=== PATIENT | male | born 1980 | race Native Hawaiian/Other Pacific Islander ===

== ENCOUNTER 2018-02-13 07:30 | Outpatient (CLI) | payer BC ==
[2018-02-13 08:02] LABS: PLATELET COUNT 245 K/uL (142-355)
[2018-02-13 08:10] LABS: POTASSIUM 3.9 mmol/L (3.6-5.2)
== END 2018-02-13 19:19 | disposition home or self-care (01) ==
LOC: LABW 07:30
PROVIDERS: Internal Medicine
DX: Z00.00 Encounter for general adult medical examination without abnormal findings (principal)
CPT/HCPCS: 36415; 80053; 80061; 81000; 84439; 84443; 85027